=== PATIENT | male | born 1945 | race Caucasian/White ===

== ENCOUNTER 2024-03-19 06:06 | Inpatient (IN) ==
--- NOTE | 2024-03-15 13:13 | Anesthesiology Consultation ---
Date of Service March 15, 2024 Assessment & Plan (1) Encounter for pre-operative examination: - awaiting confirmed 03/15/24 CXR report, if unremarkable will be acceptable to proceed. - Per shared services manager : No known infectious disease contacts, current infectious disease symptoms in past 10 days or COVID positive test result in the past 30 days. Chart Review Chart Review: Pending: Refer to Additional Notes / Consult section and Patient NOT seen in Pre Admission Testing History Surgery Operation Date: 03/19/24 08:00 Proposed Procedures p Left Transcarotid Artery Revascularization - John Márquez MD Height/Weight Height: 6 ft 2 in Weight: 117.934 kg Allergies Allergy/AdvReac Type Severity Reaction Status Date / Time acetaminophen [From Percocet] AdvReac Unknown Nausea Verified 03/07/24 09:19 oxycodone [From Percocet] AdvReac Unknown Nausea Verified 03/07/24 09:18 Medications Home Medications Medication Instructions Recorded Confirmed Last Taken amitriptyline 75 mg tablet 75 mg PO HS 12/27/23 03/07/24 Unknown amlodipine 5 mg tablet 5 mg PO QAM 12/27/23 03/07/24 Unknown aspirin 81 mg tablet,delayed 81 mg PO DAILY 12/27/23 03/07/24 12/26/23 release 2100 atorvastatin 10 mg tablet 10 mg PO QAM 12/27/23 03/07/24 Unknown clopidogrel 75 mg tablet 75 mg PO QAM 12/27/23 03/07/24 1 Day Ago ~12/26/23 Past Medical History Medical History (Updated 03/15/24 @ 13:11 by Aury Jim PA-C) Carotid artery stenosis upcoming left TCAR Dyslipidemia History of postoperative nausea and vomiting after shoulder sx HTN (hypertension) Neuropathy b/l feet; reason for amitriptyline Sleep apnea no device Past Surgical History Surgical History History of lumbar surgery ~ 20 yrs ago >> disc herniation Hx of cardiac catheterization 12/2023, [facility] - no stents Hx of shoulder surgery torn rotator cuff Social History Smoking Status: Former smoker Do You Dip or Chew Tobacco: No Smoking End Date: quit 50+ years ago Alcohol type: beer alcohol intake frequency: a few times a month Hx Substance Use: No substance use type: does not use Testing Electrocardiogram Date: 12/20/23 Sinus rhythm with frequent premature ventricular complexes, rate 88 bpm Minimal voltage criteria for LVH Cardiac Catheterization Date: 12/27/23 LM -normal caliber, no significant disease LAD -medium caliber, proximal luminal irregularities, 30% mid segment disease. Distal vessel without significant disease and wraps around apex. Medium D1 without disease. Circumflex -dominant, large caliber 20-30% earlymid stenosis at takeoff of OM1. Remainder of AV groove circumflex without significant disease. Large OM1 20% ostial. Medium OM 2 without significant disease. Small L PDA without disease. RCA -nondominant, medium caliber, no significant disease. Mild nonobstructive coronary artery disease - 30% mid LAD 20-30% earlymid circumflex. OM1 20% ostial
[2024-03-19 06:47] LABS: Hematocrit (blood only) 42.8 % (42.0-52.0); Mean Corpuscular Hemoglobin 29.5 pg (25.0-34.0); Mean Corpuscular Hgb Conc 32.7 g/dL (32.0-36.0); Mean Corpuscular Volume 90.1 fL (80.0-100.0); Mean Platelet Volume 10.3 fL (9.4-12.4); Platelet Count 261 K/uL (130-400); RDW Coefficient of Variation 13.5 % (11.5-14.5); RDW Standard Deviation 45.1 fL (36.4-46.3); Red Blood Count 4.75 M/uL (4.70-6.10); White Blood Count 8.71 K/ul (4.8-10.8)
[2024-03-19] MEDS ORDERED: DEXAMETHASONE SOD INJ 4 MG/ML VIAL ONE (06:50)
[2024-03-19] MEDS ORDERED: LIDOCAINE 2% 2 ML VIAL/AMP(20MG/ML) INFIL ONE (06:50)
[2024-03-19] MEDS ORDERED: ONDANSETRON INJ 2 MG/ML 2 ML VIAL ONE (06:50)
[2024-03-19] MEDS ORDERED: PROPOFOL IV EMULSION 10 MG/ML 20 ML VIAL IV ONE (06:50)
[2024-03-19] MEDS ORDERED: fentaNYL citrate PF 100 MCG/2 ML VIAL ONE ×2 (06:51→08:53)
[2024-03-19] MEDS: LR 15ML/HR IV SCH (06:55)
[2024-03-19] MEDS ORDERED: ROCURONIUM BROMIDE 10 MG/ML 5 ML VIAL IV ONE ×2 (06:56→08:17)
[2024-03-19] MEDS ORDERED: HEPARIN SOD (PORCINE) 1000 UNIT/ML ONE ×2 (06:56→09:16)
[2024-03-19] MEDS ORDERED: GLYCOPYRROLATE 0.2 MG/ML VIAL ONE (06:57)
[2024-03-19 07:10] LABS: Anion Gap 5 (3-11); Blood Urea Nitrogen 19 mg/dl (6-23); Calcium 9.3 mg/dl (8.6-10.3); Carbon Dioxide 31 mmol/L (21-32); Chloride 101 mmol/L (98-107); Creatinine Clr Calc Pharmacy 62.8 ml/min; Glucose 119 mg/dl (70-99(Fasting)); Sodium 137 mmol/L (136-145)
[2024-03-19] MEDS: CLOPIDOGREL BISULFATE 75 MG TAB PO ONE (07:17)
--- NOTE | 2024-03-19 07:47 | History & Physical Report ---
Date of Service March 19, 2024 Assessment & Plan (1) Stenosis of left internal carotid artery: Plan: Patient admitted for a left tcar. I have discussed the risks options and benefits of the procedure with the patient. The patient understands the risks options and benefits and agrees to the procedure. History of Present Illness Chief Complaint: Left internal carotid artery stenosis Primary Care Provider: SHAHEED PerezC Mr Vang is a 78-year-old male who has a significant left internal carotid art majo stenosis. He is asymptomatic from this lesion. He has been followed by our group in [place] for the last few years. He has been worked up for tentative left carotid TCAR. He unfortunately does have PTSD and would like to have his procedure done at [facility]. He believes that it would be less stressful at a smaller hospital and abdomen. Allergies Allergy/AdvReac Type Severity Reaction Status Date / Time oxycodone [From Percocet] AdvReac Unknown Nausea Verified 03/19/24 06:38 Home Medications Medication Instructions Recorded Confirmed Type amitriptyline 75 mg tablet 75 mg PO HS 12/27/23 03/19/24 History amlodipine 5 mg tablet 5 mg PO QPM 12/27/23 03/19/24 History aspirin 81 mg tablet,delayed 81 mg PO DAILY 12/27/23 03/19/24 History release atorvastatin 10 mg tablet 10 mg PO QPM 12/27/23 03/19/24 History clopidogrel 75 mg tablet 75 mg PO QAM 12/27/23 03/19/24 History alprazolam 0.5 mg tablet (Xanax) 0.5 mg PO TID PRN Anxiety 03/19/24 03/19/24 History Past Med/Surg History Problem List (Updated 03/19/24 @ 07:46 by John Márquez MD) Stenosis of left internal carotid artery Encounter for pre-operative examination Medical History [place] (hard of hearing) PTSD (post-traumatic stress disorder) Dyslipidemia History of postoperative nausea and vomiting after shoulder sx Neuropathy b/l feet; reason for amitriptyline Carotid artery stenosis upcoming left TCAR Sleep apnea no device HTN (hypertension) Surgical History Hx of cardiac catheterization 12/2023, [facility] - no stents History of lumbar surgery ~ 20 yrs ago >> disc herniation Hx of shoulder surgery torn rotator cuff Social History Smoking Status: Former smoker Tobacco Type: Cigarettes Smoking End Date: quit 50+ years ago; Second Hand Exposure: No; Do You Dip or Chew Tobacco: No; Tobacco Cessation Education Requested by Patient: No Hx Substance Use: No Preferred Language: Surinamese Communication Ability: Effective Sports Editor Required: No Beliefs That Will Affect Care: None Current Living Situation: Spouse Other Information That Helps Us Care for You: No Feels Safe at Home: Yes Safety Concerns: Feels Safe At This Time Assistive Devices: Glasses Assistive Devices Comment: reading glasses Review of Systems All systems reviewed & are unremarkable except as noted in HPI & below Physical Exam Physical Exam: On physical exam he is awake alert and oriented x 3. He is in no apparent distress. His blood pressure is 160/80 on the left and 142/70 on the right. His radials and carotids are +2 bilaterally. There is a soft left carotid bruit. Lungs are clear heart irregular rhythm. Abdominal exam is benign. His lower extremity pulses are +2 bilaterally in both dorsalis pedis and posterior tibial arteries. He has good capillary refill both feet. His neurologic exam was within normal limits. Diagnostic Results CT angiogram shows a good 80% narrowing of the left internal carotid artery. Results & Data Vital Signs (Past 12 Hours) Vital Signs Temp Pulse Resp BP BP Pulse Ox O2 Del Method 03/19/24 06:41 36.5 C 80 20 176/81 H 155/84 H 98 Room Air
[2024-03-19] MEDS: ceFAZolin 3000MG 3,000 MG/72.5 ML BAG IV SCH (08:32)
[2024-03-19] MEDS ORDERED: ePHEDrine sulfate 50 MG/5 ML SYR ONE (09:22)
[2024-03-19] MEDS ORDERED: PROTAMINE SULFATE 10 MG/ML 5 ML VIAL IV ONE (09:39)
[2024-03-19] MEDS ORDERED: SUGAMMADEX SODIUM 200 MG/2 ML VIAL IV ONE (09:42)
[2024-03-19] MEDS: THROMBIN FOR SOLN 20000 UNIT KIT ONE (09:54)
[2024-03-19] MEDS: GELATIN SPONGE SZ 100 ONE (09:54)
[2024-03-19] MEDS: ARISTA ABSORBABLE HEMOSTAT 3GM TOP ONE (09:55)
[2024-03-19] MEDS: ceFAZolin 330 MG/ML 1 GM VIAL ONE (10:02)
[2024-03-19] MEDS: BUPIVACAINE/EPINEPHRINE 0.5% MPF 1:200,000 30 ML VIAL ONE (10:02)
--- NOTE | 2024-03-19 10:03 | Post Operative Brief Note ---
Immediate Post Op Note Date of Surgery March 19, 2024 Pre & Post Diagnosis Operation Date: 03/19/24 08:00 Pre-Op Diagnosis: Left Carotid Stenosis Post-Op Diagnosis: Left Carotid Stenosis I identified the patient and participated in the time-out.: Yes Procedure Operation Date: 03/19/24 08:00 Actual Procedures p Left Transcarotid Artery Revascularization, Ultrasound femoral Vein(Left) - John Márquez MD Surgeon John Márquez MD Electric Accounting Machine Operator DO Monet GurrolaMinarchick,PAC Estimated Blood Loss 20 Findings Consistent with Post-Op Diagnosis Anesthesia Type General Complications none Disposition Accompanied Patient To Recovery: No Disposition: Recovery Room
--- OUTSIDE RECORDS SUMMARY | 2024-03-19 10:06 | External Medical Summary | Continuity of Care Document ---
Author Name Unknown Organization [facility] [address] Address [address] [place], [place] [id number] Care Team Providers Care Employee Relations Administrator Name Role Phone Vinnie Manzo Primary Care Physician [phone] [id number] Date(s): 03/15/24 - 03/15/24 [facility] [address] [facility] [address], [facility] [place], [place] [phone] Encounter Diagnosis Occlusion and stenosis of unspecified carotid artery(Final) - Discharge Disposition: Home or Self Care Attending Physician: MD Márquez Eugene J Referring Physician: MD Márquez Eugene J Allergies, Adverse Reactions, Alerts Substance Criticality Severity Reaction Reaction Severity Status Percocet 7.5/325 upset stomach Active Medications amitriptyline 75 mg oral tablet Start: 12/19/18 10:42:00 AM EDT, 1 tab, PO, qhs Start Date: 12/19/18 Status: Ordered amLODIPine 5 mg oral tablet Start: 12/18/23 2:46:00 PM EDT, 1 tab, PO, Daily Start Date: 12/18/23 Status: Ordered aspirin 81 mg oral tablet Start: 12/19/18 10:41:00 AM EDT, 1 tab, PO, Daily Start Date: 12/19/18 Status: Ordered clopidogrel 75 mg oral tablet Start: 02/15/24 11:15:00 AM EST, 1 tab, PO, Daily, Disp# 90 tab, Refills: 0, Pharmacy: [id number] Start Date: 02/15/24 Status: Ordered Crestor 10 mg oral tablet Start: 07/15/20 11:31:00 AM EDT, 1 tab, PO, qhs, Disp# 30 tab, Refills: 6, Pharmacy: [facility] Start Date: 07/15/20 Status: Ordered Problem List Condition Confirmation Course Effective Dates Status H ealth Status Informant Occlusion and stenosis of bilateral carotid arteries Confirmed Active Blepharitis Confirmed Active Carotid stenosis Confirmed Active Coronary artery disease Confirmed Active Torn rotator cuff Confirmed Active Epiretinal membrane, right eye Confirmed Active Gout Confirmed Active Hyperlipidemia Confirmed Active Hypertension Confirmed Active Major depressive disorder Confirmed Active Cataracts, bilateral Confirmed Active Peripheral neuropathy Confirmed Active Procedures Procedure Date Related Diagnosis Body Site Status Complete repair of rotator cuff 1 Completed Surgery 2 Completed 1L shoulder 2back Results Laboratory List Name Date Platelet Function (P2Y12 Receptor) (PLT FUNCTION P2Y12) 03/15/24 Most recent to oldest [Reference Range]: 1 P2Y12 Platelet Function [194-418 PRU] 15 9 PRU 1 *LOW* (03/15/24 11:56 AM) 1Result Comment: PRU reference range is 194-418 (healthy adults, no drug treatment). Post Drug Results: Lower PRU levels are expected following treatment with antiplatelet drugs. Post-treatment values are usually below the stated reference range above. The post-drug PRU values reported in the VerifyNOW P2Y12 package insert are 18-435. This broader range reflects the variability in drug response and is consistent with significant numbers of patients with decreased sensitivity to P2Y12 receptor antagonists (prasugrel or clopidogrel). Clinical studies suggest an on-treatment PRU>230 indicates less than optimal response to therapy, and PRU<208 at 12-24 hours after percutaneous intervention or during follow-up is associated with a lower risk of cardiovascular events (1). (1).Standard-vs high-dose clopidogrel based on platelet function testing after percutaneouscoronary intervention: the GRAVITAS randomized trial. Addison et al. BOOKER. 2010June 16; 305(11): 8073-9215. doi: 10.1001/booker.2011.290 Social History Social History Type Response Smoking Status Former Smoker, quit > 1 yr Sex Male Sex Representation Male (finding) Patient Care team information Care Team Personnel Name: ALMA Rae Terra L Position: Nurse Pract - Vascular Surg Member Role: Lifetime Relationship Address: [address] [place] [address] [place] Name: JENNY Traylor Bridget M Position: Physician Electronic Scale Assembler And Tester - Vascular Surg Member Role: Lifetime Relationship Address: [address] [place] [address] [address] [place] [address] [place] Name: JENNY Awad Lynn Position: Physician Electronic Scale Assembler And Tester Exempt - Vasc Surg Member Role: Lifetime Relationship Address: [address] [place] [address], [place] [address] [place] Name: ALMA Manzo Brandon David Position: Referring Member Role: Primary Care Provider Address: [facility] [address] [address] [place] Care Team Related Persons Name: GET TELLEZ
--- NOTE | 2024-03-19 10:13 | Operative Report ---
Post Operative Report Pre & Post Diagnosis Operation Date: 03/19/24 08:00 Pre-Op Diagnosis: Left Carotid Stenosis Post-Op Diagnosis: Left Carotid Stenosis I identified the patient and participated in the time-out.: Yes Procedure Operation Date: 03/19/24 08:00 Actual Procedures p Left Transcarotid Artery Revascularization, Ultrasound femoral Vein(Left) - John Márquez MD Surgeon John Márquez MD Communications Lead Antonio Gavin, Estimated Blood Loss 20 Findings Consistent with Post-Op Diagnosis Severe L ICA stenosis on pre-intervention angiogram. L ICA without significant residual stenosis following stenting. Pt was moving all extremities on conclusion of the case. Fluids Per anesthesia Specimens No specimen Drains No drain Anesthesia Type General Complications No apparent complications at end of case. Indications Asymptomatic L carotid stenosis Description of Procedure The patient was brought to the operating room, where lines were placed and general anesthesia was accomplished by anesthesia team. A shoulder roll was placed and the neck was rotated towards the left side of the patient. The left neck and bilateral groins were prepped and patient was draped in the usual sterile fashion. A timeout was performed identifying the correct patient by name, procedure, and location of procedure and all were in agreement. A 4cm transverse incision was made between the sternal and clavicular heads of the sternocleidomastoid muscle. The muscle heads were retracted to each side and the carotid sheath was identified. Using blunt dissection, the carotid sheath was opened and 3cm of common carotid artery (CCA) were isolated. Umbilical tape was placed around the proximal CCA under direct visualization. A 5-0 prolene U- stitch was pre-placed in the anterior wall of the CCA to facilitate hemostasis after removal of the arterial sheath at completion of the procedure. The patient was given 10,000 units of IV heparin. The contralateral right common femoral vein accessed under ultrasound guidance however there did appear to be pulsatile flow prior to insertion of the venous sheath. The decsision was made to place a five albanian sheath and access the L femoral vein. This was accomplished utilizing ultrasound guidance and a micropuncture needle and a wire and sheath were placed using modified Seldinger technique. The venous return sheath was advanced into the common femoral vein over the 0.035" wire. Blood was aspirated from the flow line and the sheath was flushed with heparinized saline.The sheath was secured to the patient's skin with a 2-0 silk stitch to maintain position in the vessel. ACT was confirmed to be above 250 seconds prior to arterial access. A 4-Armenian non-stiffened micropuncture set was used, puncturing the artery with a 21G needle through the pre-placed U-stitch while holding gentle traction on the umbilical tape to stabilize the CCA within the incision. The micropuncture wire was advanced 3-4cm into the CCA and the 21G needle removed. The micropuncture sheath was advanced 3cm into the CCA and the wire and dilator were removed. A cerebral angiogram was obtained after ensuring there were no air bubbles in the system. The J-tipped guidewire was inserted and stopped short of the external carotid artery. After micropuncture sheath removal, the transcarotid arterial sheath was advanced to the 3rd marker and the 0.035" wire and dilator were removed. Arterial sheath position was assessed under fluoroscopy. The arterial sheath was sutured to the patient at two sites. The Flow Controller was connected to the transcarotid arterial sheath, prepared by passively allowing arterial blood to backfill the line and then it was connected to the venous return sheath. The CCA was clamped proximally with a [place] tourniquet to ensure active flow reversal. Heparinized saline was delivered into the venous flow line to confirm adequate flow reversal. A TCAR timeout was performed, heart rate was >70bpm and systolic BP was >140mmHg. Patient had been pretreated with glycopyrrolate and atropine was available. The lesion was crossed with an 0.014" guidewire and pre-dilation balloon angioplasty was performed with a 6x35 mm [employer] rapid exchange balloon to 12 atmospheres for about 10seconds. A 10/8x40 mm ENROUTE transcarotid stent was placed, sized to the right CCA. A completion angiogram was performed showing appropriate stent position with good wall apposition. Post-dilation balloon angioplasty was not performed. At TCAR case completion, antegrade flow was restored by releasing the tourniquet on the CCA and closing the stopcocks to the flow lines. The total clamp time was 11 minutes. The transcarotid arterial sheath was removed and the pre-placed suture was tied. 25 of protamine were given. A repeat ACT was obtained and was 147. The venous return sheath was removed and hemostasis achieved with manual compression. The neck incision was irrigated with antibiotic solution and was hemostatic before closure. The platysma was approximated with 3-0 Vicryl running suture and the skin was closed with 4-0 running Vicryl suture and covered with Dermabond. The patient tolerated the procedure well and was extubated in the operating room. He was moving all four extremities to command prior to transfer to the recovery room. All counts were correct at the end of the procedure. Fluoroscopy time was 2.3minutes, radiation dose was 49mGy and 9cc of contrast were used. Dr. Márquez was present and participated in all critical parts of the procedure. I attest to the content of the Intraoperative Record and any orders documented therein. Any exceptions are noted below.
[2024-03-19] MEDS ORDERED: ONDANSETRON INJ 2 MG/ML 2 ML VIAL IV PRN (11:19)
[2024-03-19] MEDS ORDERED: oxyCODONE/ACETAMINOPHEN 5mg/325mg TAB PO PRN (11:19)
[2024-03-19] MEDS ORDERED: PHENYLEPHRINE/NSS 25 MG/250 ML BAG IV PRN (11:19)
[2024-03-19] MEDS ORDERED: STAT IV Infusion **Titration per Protocol STA (11:19)
--- NOTE | 2024-03-19 11:47 | Critical Care Consultation ---
Date of Consultation March 19, 2024 Assessment & Plan (1) Status post carotid surgery: (2) Stenosis of left internal carotid artery: (3) HTN (hypertension): (4) Dyslipidemia: (5) Neuropathy: (6) Sleep apnea: Plan IMPRESSION: 78-year-old male with a significant past medical history of hypertension, dyslipidemia, PTSD with noted LEFT-sided carotid artery stenosis who presents to the ICU status post LEFT-sided TCAR procedure. RECOMMENDATIONS: 1. Postsurgery - Postoperative orders per vascular surgery team. Monitor hemodynamics closely post vascular intervention. Neurochecks per unit protocol. Monitor for signs/symptoms of bleeding status post vascular intervention. 2. Hypertension/dyslipidemia- Reinstitution of patient's home antihypertensive and statin when clinically appropriate. 3. PTSD - Home dose of as needed Xanax. Appears to be doing well at this time. 4. Neuropathy - Continue with amitriptyline. 5. Sleep apnea - Previously diagnosed in the outpatient setting. Currently not being treated with CPAP. Thank you for allowing us to participate in the care of this pleasant patient. Will monitor in the ICU overnight per unit protocol. Supervising Physician Co-Signing Physician Notes Patient seen and examined. EMR reviewed. Discussed with critical care TRICE and agree with assessment plan as noted. History of Present Illness Reason for Consultation: post left tcar Requesting Physician: Dr. Márquez Attending Physician: John Márquez MD History of Present Illness Patient is a 78-year-old male with a significant past medical history of coronary artery disease, hypertension, dyslipidemia, PTSD, and peripheral neuropathy who had been monitored in the outpatient setting by vascular surgery progression of LEFT-sided carotid artery stenosis. He reports an event over the summer where he became lightheaded and near syncopal. Initially, this was felt to be related to dehydration, but during evaluation he was found to have progression and was referred back to his vascular surgeon. Eventually, it was felt best the patient undergo TCAR. He reports that he has had no other symptoms of note otherwise. Specifically, he denies complaints of persistent dizziness, lightheadedness, unilateral weakness/numbness, slurred speech, facial droop, chest pain, palpitations, or dyspnea on exertion. Allergies Allergy/AdvReac Type Severity Reaction Status Date / Time oxycodone [From Percocet] AdvReac Unknown Nausea Verified 03/19/24 06:38 Home Medications Medication Instructions Recorded Confirmed Type amitriptyline 75 mg tablet 75 mg PO HS 12/27/23 03/19/24 History amlodipine 5 mg tablet 5 mg PO QPM 12/27/23 03/19/24 History aspirin 81 mg tablet,delayed 81 mg PO DAILY 12/27/23 03/19/24 History release atorvastatin 10 mg tablet 10 mg PO QPM 12/27/23 03/19/24 History clopidogrel 75 mg tablet 75 mg PO QAM 12/27/23 03/19/24 History alprazolam 0.5 mg tablet (Xanax) 0.5 mg PO TID PRN Anxiety 03/19/24 03/19/24 History Patient History Medical History [place] (hard of hearing) PTSD (post-traumatic stress disorder) Dyslipidemia History of postoperative nausea and vomiting after shoulder sx Neuropathy b/l feet; reason for amitriptyline Carotid artery stenosis upcoming left TCAR Sleep apnea no device HTN (hypertension) Surgical History Hx of cardiac catheterization 12/2023, [facility] - no stents History of lumbar surgery ~ 20 yrs ago >> disc herniation Hx of shoulder surgery torn rotator cuff Social History Smoking Status: Former smoker Tobacco Type: Cigarettes Smoking End Date: quit 50+ years ago; Second Hand Exposure: No; Do You Dip or Chew Tobacco: No; Tobacco Cessation Education Requested by Patient: No Hx Substance Use: No Preferred Language: Swedish Communication Ability: Effective Polymerization Supervisor Required: No Beliefs That Will Affect Care: None Current Living Situation: Spouse Other Information That Helps Us Care for You: No Feels Safe at Home: Yes Safety Concerns: Feels Safe At This Time Assistive Devices: Glasses Assistive Devices Comment: reading glasses Review of Systems Review of Systems: A complete 10 point review of systems was reviewed with the patient with pertinent positives and negatives as per history of present illness. All else were negative. Physical Exam Physical Exam: VITAL SIGNS - Vital signs and nursing notes were reviewed. GENERAL - 78-year-old male appearing his stated age who is in no acute distress. Communicates well with provider and answers questions appropriately. SKIN -surgical incision site to the LEFT-sided neck base clean, dry, and intact with edema and ecchymosis. RIGHT groin access point dressing clean, dry, and intact. HEAD - NC/AT. EYES - PERRL with EOMI bilaterally. Sclera anicteric. EARS - No deformities of external structures noted on gross examination bilaterally. NOSE - Midline and without cyanosis. MOUTH/OROPHARYNX - Without perioral cyanosis. NECK - Neck with FROM. LUNGS - Chest wall symmetric without accessory muscle use, intercostals retractions, or central cyanosis. Normal vesicular breath sounds CTA B/L. No wheezes, rales, or rhonchi appreciated. CARDIAC - RRR with S1/S2. No murmur, rubs, or gallops appreciated. ABDOMEN - Abdominal contour obese without pulsations or visible masses. BS normoactive all four quadrants. No tenderness, palpable masses, hepatosplenomegaly, or ascites noted. EXTREMITIES - No clubbing or peripheral cyanosis. No pretibial edema present. +3/5 radial and dorsalis pedis pulses palpated throughout. +5/5 strength noted in UE/LE bilaterally. NEUROLOGIC - Cranial nerves II through XII grossly intact. Sensory intact to light touch throughout. PSYCH - A&Ox3 and cooperates fully with examiner. Pt is very pleasant and interacts well with examiner. Results & Data Results & Data Vital Signs (Past 12 Hours) Vital Signs Temp Pulse Pulse Resp BP BP BP 03/19/24 10:45 36.1 C L 79 16 156/63 H 03/19/24 10:35 86 17 155/60 H 03/19/24 10:25 89 17 183/74 H 03/19/24 10:17 36.0 C L 90 17 168/83 H 03/19/24 06:41 36.5 C 80 20 176/81 H 155/84 H Pulse Ox O2 Del Method O2 Flow Rate 03/19/24 10:45 95 Room Air 03/19/24 10:35 98 Room Air 03/19/24 10:25 100 Oxymask 5 03/19/24 10:17 100 Oxymask 5 03/19/24 06:41 98 Room Air Coding Level of Care Code 46498 IN/OBS CONSULT LVL 3,45M Diagnoses Status post carotid surgery Z98.890 Stenosis of left internal carotid artery I65.22 HTN (hypertension) I10 Dyslipidemia E78.5 Neuropathy G62.9 Sleep apnea G47.30
[2024-03-19] MEDS: SODIUM CHLORIDE 0.9% 1,000 ML IV SCH (11:54)
--- NOTE | 2024-03-19 14:50 | Anesthesiology Progress Note ---
Date of Service March 19, 2024 Anesthesia Post Procedure Vital Signs Vital Signs: Temp Pulse Pulse Resp BP BP BP 03/19/24 10:45 36.1 C L 79 16 156/63 H 03/19/24 10:35 86 17 155/60 H 03/19/24 10:25 89 17 183/74 H 03/19/24 10:17 36.0 C L 90 17 168/83 H 03/19/24 06:41 36.5 C 80 20 176/81 H 155/84 H Pulse Ox O2 Del Method O2 Flow Rate 03/19/24 10:45 95 Room Air 03/19/24 10:35 98 Room Air 03/19/24 10:25 100 Oxymask 5 03/19/24 10:17 100 Oxymask 5 03/19/24 06:41 98 Room Air Transfer of Care Handoff Completed per policy Notes Mental Status: alert / awake / arousable Patient Amnestic to Procedure: Yes Nausea / Vomiting: adequately controlled Pain: adequately controlled Airway Patency, RR, SpO2: stable & adequate BP & HR: stable & adequate Hydration State: stable & adequate Anesthetic Complications: no major complications apparent and Pt Satisfied with anesthetic care
[2024-03-19] MEDS: ALPRAZolam 0.5 MG TABLET PO PRN (18:33)
[2024-03-19] MEDS: ceFAZolin 2000MG 2,000 MG/15 ML SYR IV SCH (18:47)
[2024-03-19] MEDS: amLODIPine BESYLATE 5 MG TAB PO SCH (20:26)
[2024-03-19] MEDS: AMITRIPTYLINE HCL 25 MG TAB PO SCH (20:26)
[2024-03-19] MEDS: PHENYLEPHRINE HCL 25 MG/250 ML NSS IV ONE (20:26)
[2024-03-19] MEDS: ATORVASTATIN 10 MG TAB PO SCH (20:27)
[2024-03-20] MEDS: ASPIRIN 81 MG ECTAB PO SCH (08:26)
[2024-03-20] MEDS: CLOPIDOGREL BISULFATE 75 MG TAB PO SCH (08:26)
--- NOTE | 2024-03-20 10:55 | Critical Care Progress Note ---
Date of Service March 20, 2024 Assessment & Plan (1) Status post carotid surgery: (2) Stenosis of left internal carotid artery: (3) HTN (hypertension): (4) Dyslipidemia: (5) Neuropathy: (6) Sleep apnea: Plan IMPRESSION: 78-year-old male with a significant past medical history of hypertension, dyslipidemia, PTSD with noted LEFT-sided carotid artery stenosis who presents to the ICU status post LEFT-sided TCAR procedure. RECOMMENDATIONS: 1. Postsurgery - Postoperative orders per vascular surgery team. Patient has done well hemodynamically. 2. Hypertension/dyslipidemia - Reinstitution of patient's home antihypertensive and statin when clinically appropriate. 3. PTSD - Home dose of as needed Xanax. Appears to be doing well at this time. 4. Neuropathy - Continue with amitriptyline. 5. Sleep apnea - Previously diagnosed in the outpatient setting. Currently not being treated with CPAP. Thank you for allowing us to participate in the care of this pleasant patient. Patient stable for downgrade to the ICU at this time. Defer to vascular surgery for disposition planning. Admission and Anticipated Discharge Date Admission Date: March 19, 2024 Supervising Physician Co-Signing Physician Notes Patient seen and examined. EMR reviewed. Discussed on multidisciplinary rounds and with bedside critical care nurse. The patient is doing well clinically. No concerns overnight. Arterial line has been discontinued. Disposition per vascular surgery. Critical care will sign off. Feel free to contact us with questions or concerns Subjective Patient seen and evaluated at bedside. He had an uneventful night. He reports no complaints of pain. He tolerated his diet well. He is hopeful to be discharged home soon. Review of Systems Review of Systems: A complete 10 point review of systems was reviewed with the patient with pertinent positives and negatives as per history of present illness. All else were negative. Physical Exam Physical Exam: VITAL SIGNS - Vital signs and nursing notes were reviewed. GENERAL - 78-year-old male appearing his stated age who is in no acute distress. Communicates well with provider and answers questions appropriately. SKIN -surgical incision site to the LEFT-sided neck base clean, dry, and intact with edema and ecchymosis. HEAD - NC/AT. EYES - PERRL with EOMI bilaterally. Sclera anicteric. EARS - No deformities of external structures noted on gross examination bilaterally. NOSE - Midline and without cyanosis. MOUTH/OROPHARYNX - Without perioral cyanosis. NECK - Neck with FROM. LUNGS - Chest wall symmetric without accessory muscle use, intercostals retractions, or central cyanosis. Normal vesicular breath sounds CTA B/L. No wheezes, rales, or rhonchi appreciated. CARDIAC - RRR with S1/S2. No murmur, rubs, or gallops appreciated. ABDOMEN - Abdominal contour obese without pulsations or visible masses. BS normoactive all four quadrants. No tenderness, palpable masses, hepatosplenomegaly, or ascites noted. EXTREMITIES - No clubbing or peripheral cyanosis. No pretibial edema present. +3/5 radial and dorsalis pedis pulses palpated throughout. +5/5 strength noted in UE/LE bilaterally. NEUROLOGIC - Cranial nerves II through XII grossly intact. Sensory intact to light touch throughout. PSYCH - A&Ox3 and cooperates fully with examiner. Pt is very pleasant and interacts well with examiner. Results & Data Results & Data Vital Signs (Past 12 Hours) Vital Signs Temp Pulse Resp BP Pulse Ox 03/20/24 08:09 81 21 03/20/24 07:12 72 17 03/20/24 07:09 82 03/20/24 06:03 73 14 93 03/20/24 06:00 146/88 H 03/20/24 06:00 146/88 H 03/20/24 06:00 146/88 H 03/20/24 06:00 146/88 H 03/20/24 05:33 67 13 92 03/20/24 05:24 78 15 94 03/20/24 05:09 78 25 H 93 03/20/24 04:54 73 22 92 03/20/24 04:18 79 24 95 03/20/24 04:03 68 18 94 03/20/24 04:00 158/67 H 03/20/24 04:00 158/67 H 03/20/24 03:57 75 20 92 03/20/24 03:42 68 15 93 03/20/24 03:00 72 14 93 03/20/24 03:00 127/77 03/20/24 02:30 36.7 C 76 17 92 03/20/24 01:54 90 24 93 03/20/24 01:39 36.7 C 93 H 25 H 93 03/20/24 01:15 90 23 92 03/20/24 00:30 91 H 22 92 03/20/24 00:12 97 H 26 H 94 03/20/24 00:00 139/85 03/20/24 00:00 139/85 03/20/24 00:00 139/85 03/20/24 00:00 96 H 23 93 03/20/24 00:00 102 H 03/19/24 23:54 36.7 C 98 H 27 H 92 03/19/24 23:42 98 H 20 92 03/19/24 23:30 102 H 24 94 03/19/24 23:21 102 H 22 93 03/19/24 23:12 112 H 23 93 03/19/24 23:09 112 H 27 H 93 03/19/24 23:00 171/92 H Coding Level of Care Code 42434 SUB INP/OBS CARE 2/35MIN Diagnoses Status post carotid surgery Z98.890 Stenosis of left internal carotid artery I65.22 HTN (hypertension) I10 Dyslipidemia E78.5 Neuropathy G62.9 Sleep apnea G47.30
--- NOTE | 2024-03-20 15:13 | Surgery Progress Note ---
Date of Service March 20, 2024 Assessment & Plan (1) Stenosis of left internal carotid artery: Plan: Pt now POD #1 after uncomplicated L TCAR. DOing well post op. OK for d/c home today. Admission and Anticipated Discharge Date Admission Date: March 19, 2024 Subjective 78 yo m POD #1 after L TCAR, seen in f/u today. Pt denies any significant pain or other concerns. Review of Systems Review of Systems: All systems reviewed & are unremarkable except as noted in HPI & below Physical Exam Constitutional: WD/WN, vitals as above cooperative; not in distress Neck: L supraclavicular incision C/D/I, mild local ecchymosis and tenderness. Respiratory: normal respiratory effort, lungs clear to auscultation Auscultation: + diminished lung sounds Cardiovascular: Rate/Rhythm: regular rate and regular rhythm Vessels: posterior tibial pulses present, dorsalis pedis pulses present and radial pulses present; + abnormal peripheral pulses Extremities: normal capillary refill; no edema Gastrointestinal (Abdomen): Inspection/Auscultation: abdomen normal to inspection and normal bowel sounds Percussion/Palpation: abdomen soft; abdomen nontender Musculoskeletal: no cyanosis or clubbing, extremities motor strength 5/5 Skin: no rashes, warm and dry + incision (groin puncture intact. ) Neurologic: moves all extremities and awake; no focal motor deficits and not confused Psychiatric: A+Ox3, euthymic affect Results & Data Vital Signs (Past 12 Hours) Vital Signs Temp Pulse Pulse Pulse Resp BP BP 03/20/24 14:15 36.7 C 79 80 21 168/83 H 03/20/24 08:09 81 21 03/20/24 07:12 72 17 03/20/24 07:09 82 03/20/24 06:03 73 14 03/20/24 06:00 146/88 H 03/20/24 06:00 146/88 H 03/20/24 06:00 146/88 H 03/20/24 06:00 146/88 H 03/20/24 05:33 67 13 03/20/24 05:24 78 15 03/20/24 05:09 78 25 H 03/20/24 04:54 73 22 03/20/24 04:18 79 24 03/20/24 04:03 68 18 03/20/24 04:00 158/67 H 03/20/24 04:00 158/67 H 03/20/24 03:57 75 20 03/20/24 03:42 68 15 BP BP Pulse Ox 03/20/24 14:15 155/84 H 156/63 H 93 03/20/24 08:09 03/20/24 07:12 03/20/24 07:09 03/20/24 06:03 93 03/20/24 06:00 03/20/24 06:00 03/20/24 06:00 03/20/24 06:00 03/20/24 05:33 92 03/20/24 05:24 94 03/20/24 05:09 93 03/20/24 04:54 92 03/20/24 04:18 95 03/20/24 04:03 94 03/20/24 04:00 03/20/24 04:00 03/20/24 03:57 92 03/20/24 03:42 93
--- NOTE | 2024-03-20 15:14 | Discharge Summary ---
Date of Service March 20, 2024 Admission HPI Per Admitting Provider Mr Vang is a 78-year-old male who has a significant left internal carotid artery stenosis. He is asymptomatic from this lesion. He has been followed by our group in [place] for the last few years. He has been worked up for tentative left carotid TCAR. He unfortunately does have PTSD and would like to have his procedure done at [facility]. He believes that it would be less stressful at a smaller hospital and abdomen. Admission Exam Per Admitting Provider On physical exam he is awake alert and oriented x 3. He is in no apparent distress. His blood pressure is 160/80 on the left and 142/70 on the right. His radials and carotids are +2 bilaterally. There is a soft left carotid bruit. Lungs are clear heart irregular rhythm. Abdominal exam is benign. His lower extremity pulses are +2 bilaterally in both dorsalis pedis and posterior tibial arteries. He has good capillary refill both feet. His neurologic exam was within normal limits. Principal Diagnosis 1. s/p L TCAR 2. L ICA stenosis Discharge Exam Constitutional WD/WN, vitals as above cooperative; not in distress Respiratory normal respiratory effort, lungs clear to auscultation Auscultation: + diminished lung sounds Cardiovascular Rate/Rhythm: regular rate and regular rhythm Vessels: posterior tibial pulses present, dorsalis pedis pulses present and radial pulses present; + abnormal peripheral pulses Extremities: normal capillary refill; no edema Gastrointestinal (Abdomen) Inspection/Auscultation: abdomen normal to inspection and normal bowel sounds Percussion/Palpation: abdomen soft; abdomen nontender Musculoskeletal no cyanosis or clubbing, extremities motor strength 5/5 Skin no rashes, warm and dry + incision (groin puncture intact. ) Neurologic moves all extremities and awake; no focal motor deficits and not confused Psychiatric A+Ox3, euthymic affect Discharge Data Allergies Allergy/AdvReac Type Severity Reaction Status Date / Time oxycodone [From Percocet] AdvReac Unknown Nausea Verified 03/19/24 06:38 Consultations 03/19/24 11:19 Consult Seat Coverer Routine Procedures Performed Operation Date: 03/19/24 08:00 Actual Procedures p Left Transcarotid Artery Revascularization, Ultrasound femoral Vein(Left) - John Alvarez MD Ordered Studies 03/19/24 07:21 EV angio carotid cerv LT Routine US EV guide vascular access Routine Hospital Course (1) Stenosis of left internal carotid artery: Pt now POD #1 after uncomplicated L TCAR. DOing well post op. OK for d/c home today. Total Time Total Time Spent Total Time Spent (In Minutes): 0 Discharge Plan Discharge Items Patient Disposition: Home - Self-Care Reason For Visit: Left Carotid Stenosis Discharge Diagnosis: 1. s/p L TCAR 2. L ICA stenosis Activity: Per Instructions section Non-emergency contact: Primary Care Provider and Surgeon Call non-emergency contact if: you have any medication questions, your symptoms worsen, your pain is not controlled, your pain is concerning for you, you have a fever, your wound has increased redness and your wound has increased drainage Follow-up/Referrals: John Alvarez MD [Physician] - (Follow up with Dr Alvarez or Rosalva Awad PA-C, in 2 weeks) Vinnie Manzo NP-C [Primary Care Provider] - (Follow up with your PCP within 2 weeks) Diet: Heart Healthy Addtl Attending Provider Instructions: ACTIVITY RECOMMENDATIONS: 1. Continue aspirin, plavix, and statin medications. DO NOT STOP THESE MEDICATIONS WITHOUT SPEAKING TO DR ALVAREZ'S OFFICE. 2. May shower 3. Increase activity as tolerated. SPECIAL CARE INSTRUCTIONS: Call your doctor if: * Temperature above 101 degrees * Pain not relieved by pain medicine ordered * There is increased drainage or redness from any incision * You have any unanswered questions or concerns. Pending Studies at Discharge: No Stand-Alone Forms: [employer], Smoking Cessation Medications and DC Order Prescriptions: New oxycodone-acetaminophen [Percocet] 5-325 mg Tablet 1 tab PO Q6H PRN (Reason: pain) Qty: 10 0RF Continued atorvastatin 10 mg Tablet 10 mg PO QPM amitriptyline 75 mg Tablet 75 mg PO HS clopidogrel 75 mg Tablet 75 mg PO QAM amlodipine 5 mg Tablet 5 mg PO QPM aspirin 81 mg Tablet,Delayed Release (Dr/Ec) 81 mg PO DAILY alprazolam [Xanax] 0.5 mg Tablet 0.5 mg PO TID PRN (Reason: Anxiety) Discharge Orders: Discharge Order (Routine); Ordered 03/20/24 Ordered By: Rosalva Awad Admission Data Admit Date/Time: 03/19/24 07:47 Attending Provider: John Alvarez Admit Provider: John Alvarez Primary Care Provider: Vinnie Manzo Other Providers: Anthony Sahu; Marcelo Smith; Jaden Taylor; Arcenio Mcclellan; Francisco Mancera; Mayte Huddleston; Gael Taveras; Radha Jovel; Adilene Bishop; Arnaldo Petit; Andry Malagon; Shahida Christianson Other Interventions: Discharge Summary Assessment (RN) Last Done: 03/20/24 14:15
== END 2024-03-20 14:22 | disposition home or self-care (01) | DRG 36 ==
LOC: ASU 06:06 → 1E 07:47
PROC: EV.TCAR (2024-03-19 08:00)
DX: I65.22 Occlusion and stenosis of left carotid artery; E78.5 Hyperlipidemia, unspecified; G62.9 Polyneuropathy, unspecified; I10 Essential (primary) hypertension; Z79.82 Long term (current) use of aspirin; Z88.5 Allergy status to narcotic agent; F43.10 Post-traumatic stress disorder, unspecified; Z79.02 Long term (current) use of antithrombotics/antiplatelets; G47.30 Sleep apnea, unspecified; Z87.891 Personal history of nicotine dependence